=== PATIENT | female | born 1975 | race Caucasian/White ===

== ENCOUNTER 2016-02-17 16:22 | Emergency (ER) | payer MEDICAID ==
[2014-12-23 00:10] VITALS: BMI 33.5
[~2016-02-17 16:22] MED LIST: DEMEROL 2525 MG/1 ML PO; DEMEROL50 MG PO; FERROUS SULFAT325 MG PO; LEVAQUIN 5500 MG/100 PO; LEVAQUIN750 MG PO; TOBREX3.5 GM LEFT EYE
== END 2016-02-17 19:56 | disposition home or self-care (01) ==
LOC: D.ER 16:22
DX: S89.91XA Unspecified injury of right lower leg, initial encounter (principal); W10.9XXA Fall (on) (from) unspecified stairs and steps, initial encounter; Y93.89 Activity, other specified; Y92.019 Unspecified place in single-family (private) house as the place of occurrence of the external cause

== ENCOUNTER 2016-03-03 18:17 | Emergency (ER) | payer MEDICAID ==
[2014-12-23 00:10] VITALS: BMI 33.5
== END 2016-03-03 20:32 | disposition home or self-care (01) ==
LOC: D.ER 18:17
DX: Z03.89 Encounter for observation for other suspected diseases and conditions ruled out (principal); Z91.19 Patient's noncompliance with other medical treatment and regimen

== ENCOUNTER 2016-03-27 16:45 | Emergency (ER) | payer MEDICAID ==
[2014-12-23 00:10] VITALS: BMI 33.5
== END 2016-03-27 20:00 | disposition home or self-care (01) ==
LOC: D.ER 16:45
DX: S83.91XA Sprain of unspecified site of right knee, initial encounter (principal); W19.XXXA Unspecified fall, initial encounter; Y93.89 Activity, other specified; Y92.018 Other place in single-family (private) house as the place of occurrence of the external cause; M25.461 Effusion, right knee

== ENCOUNTER 2016-03-31 13:31 | Emergency (ER) | payer MEDICAID ==
[2014-12-23 00:10] VITALS: BMI 33.5
== END 2016-03-31 18:03 | disposition home or self-care (01) ==
LOC: D.ER 13:31
DX: S89.91XA Unspecified injury of right lower leg, initial encounter (principal); W19.XXXA Unspecified fall, initial encounter; Y93.89 Activity, other specified; Y92.019 Unspecified place in single-family (private) house as the place of occurrence of the external cause

== ENCOUNTER 2016-05-26 12:17 | Emergency (ER) | payer MEDICAID ==
[2014-12-23 00:10] VITALS: BMI 33.5
== END 2016-05-26 16:29 | disposition home or self-care (01) ==
LOC: D.ER 12:17
DX: S93.401A Sprain of unspecified ligament of right ankle, initial encounter (principal); W19.XXXA Unspecified fall, initial encounter; Y93.89 Activity, other specified; Y92.019 Unspecified place in single-family (private) house as the place of occurrence of the external cause

== ENCOUNTER 2016-06-08 20:15 | Emergency (ER) | payer MEDICAID ==
[2014-12-23 00:10] VITALS: BMI 33.5
[2016-06-08 23:32] LABS: APPEARANCE CLOUDY (CLEAR); BILIRUBIN NEGATIVE (NEGATIVE); COLOR YELLOW (YELLOW); GLUCOSE NEGATIVE (NEGATIVE); KETONE NEGATIVE (NEGATIVE); LEUKOCYTE ESTERASE NEGATIVE (NEGATIVE); NITRITE NEGATIVE (NEGATIVE); PROTEIN NEGATIVE (NEGATIVE); UROBILINOGEN NORMAL (NORMAL)
[2016-06-08 23:38] LABS: BACTERIA MODERATE /hpf (NONE SEEN); EPITHELIAL CELLS 0-5 /hpf (0-5); RED CELLS - URINE 0-5 /hpf (0-5); WHITE CELLS - URINE 0-5 /hpf (0-5)
[2016-06-08 23:39] LABS: HYALINE CAST RARE /lpf (NONE SEEN)
== END 2016-06-09 00:24 | disposition left against medical advice (07) ==
LOC: D.ER 20:15
PROVIDERS: Family Medicine
DX: R10.9 Unspecified abdominal pain (principal); F17.200 Nicotine dependence, unspecified, uncomplicated

== ENCOUNTER 2016-07-20 18:55 | Emergency (ER) | payer MEDICAID ==
[2014-12-23 00:10] VITALS: BMI 33.5
[2016-07-20 19:58] LABS: APPEARANCE HAZY (CLEAR); BILIRUBIN NEGATIVE (NEGATIVE); COLOR YELLOW (YELLOW); GLUCOSE NEGATIVE (NEGATIVE); KETONE NEGATIVE (NEGATIVE); LEUKOCYTE ESTERASE TRACE (NEGATIVE); NITRITE NEGATIVE (NEGATIVE); PROTEIN NEGATIVE (NEGATIVE); UROBILINOGEN NORMAL (NORMAL)
[2016-07-20 19:59] LABS: BACTERIA MODERATE /hpf (NONE SEEN); MUCUS <1+ /lpf (NONE SEEN); RED CELLS - URINE RARE /hpf (0-5); WHITE CELLS - URINE 0-5 /hpf (0-5)
[2016-07-20 20:06] LABS: BASOPHILS 0.5 % (0-2); EOSINOPHILS 8.2 % (0-7); HEMATOCRIT 29.4 % (36.0-48.0); HEMOGLOBIN 9.4 g/dL (12-16); IMMATURE GRANULOCYTES 0.2 % (0-5); LYMPHOCYTES 29.8 % (15-50); MCH 25.2 pg (26.0-34.0); MCV 78.8 fL (80.0-100.0); MEAN PLATELET VOLUME 10.3 fL (7.4-10.4); MONOCYTES 10.7 % (2-11); NEUTROPHILS 50.6 % (40-80); PLATELET COUNT 166 10x3/uL (130-400); RBC 3.73 10x6/uL (4.00-5.40); RDW 13.9 % (11.5-14.5); WBC 4.4 10x3/uL (4.8-10.8)
[2016-07-20 20:34] LABS: ALBUMIN 3.3 g/dL (3.4-5.0); ALKALINE PHOSPHATASE 64 U/L (46-116); ALT (SGPT) 22 U/L (10-68); AMYLASE - SERUM 58 U/L (25-115); BILIRUBIN - TOTAL 0.48 mg/dL (0.2-1.3); CALC OSMOLALITY 273 mosm/kg (275-300); CALCIUM 8.9 mg/dL (8.5-10.1); CARBON DIOXIDE 23.5 mmol/L (21.0-32.0); CHLORIDE - SERUM 104 mmol/L (98-107); CREATININE - SERUM 0.8 mg/dL (0.6-1.3); GLUCOSE 92 mg/dL (74-106); LIPASE 352 U/L (73-393); PROTEIN - SERUM 7.1 g/dL (6.4-8.2); SODIUM 136 mmol/L (136-145); UREA NITROGEN 19 mg/dL (7-18); eGFR NON AFRICAN AMERICAN 85 mL/min (90-120)
== END 2016-07-20 21:00 | disposition home or self-care (01) ==
LOC: D.ER 18:55
PROVIDERS: Emergency Medicine
DX: K29.00 Acute gastritis without bleeding (principal); R11.2 Nausea with vomiting, unspecified

== ENCOUNTER 2016-08-07 17:48 | Emergency (ER) | payer MEDICAID ==
[2014-12-23 00:10] VITALS: BMI 33.5
== END 2016-08-07 21:01 | disposition home or self-care (01) ==
LOC: D.ER 17:48
DX: S63.501A Unspecified sprain of right wrist, initial encounter (principal); X58.XXXA Exposure to other specified factors, initial encounter; Y93.K1 Activity, walking an animal; Y92.89 Other specified places as the place of occurrence of the external cause; F17.200 Nicotine dependence, unspecified, uncomplicated

== ENCOUNTER 2016-09-29 08:10 | Emergency (ER) | payer MEDICAID ==
[2014-12-23 00:10] VITALS: BMI 33.5
== END 2016-09-29 09:44 | disposition home or self-care (01) ==
LOC: D.ER 08:10
DX: S89.91XA Unspecified injury of right lower leg, initial encounter (principal); X58.XXXA Exposure to other specified factors, initial encounter; Y93.89 Activity, other specified; Y92.89 Other specified places as the place of occurrence of the external cause; F17.200 Nicotine dependence, unspecified, uncomplicated

== ENCOUNTER 2017-06-28 07:24 | Emergency (ER) | payer SELFPAY ==
[2014-12-23 00:10] VITALS: BMI 33.5
== END 2017-06-28 08:15 | disposition home or self-care (01) ==
LOC: D.ER 07:24
DX: M25.461 Effusion, right knee (principal); S89.91XA Unspecified injury of right lower leg, initial encounter; W01.0XXA Fall on same level from slipping, tripping and stumbling without subsequent striking against object, initial encounter; Y93.89 Activity, other specified; Y92.019 Unspecified place in single-family (private) house as the place of occurrence of the external cause

== ENCOUNTER 2017-07-05 14:28 | Emergency (ER) | payer SELFPAY ==
[2014-12-23 00:10] VITALS: BMI 33.5
== END 2017-07-05 16:19 | disposition home or self-care (01) ==
LOC: D.ER 14:28
DX: M25.561 Pain in right knee (principal); W10.9XXA Fall (on) (from) unspecified stairs and steps, initial encounter; Y93.89 Activity, other specified; Y92.019 Unspecified place in single-family (private) house as the place of occurrence of the external cause

== ENCOUNTER 2017-07-27 19:48 | Emergency (ER) | payer SELFPAY ==
[~2017-07-27] VITALS: Ht 160 cm; Wt 81.6 kg
[2017-07-27 19:59] VITALS: Ht 160 cm; Wt 81.6 kg
[2017-07-27] MEDS ORDERED: TORADOL10 MG PO (22:59)
[2017-07-27 23:58] VITALS: BP 138/99
== END 2017-07-27 23:22 | disposition home or self-care (01) ==
LOC: D.ER 19:48
DX: S89.91XA Unspecified injury of right lower leg, initial encounter (principal); W19.XXXA Unspecified fall, initial encounter; Y93.89 Activity, other specified; Y92.019 Unspecified place in single-family (private) house as the place of occurrence of the external cause

== ENCOUNTER 2017-08-23 10:16 | Emergency (ER) | payer SELFPAY ==
[~2017-08-23] VITALS: Ht 160 cm; Wt 81.4 kg
[~2017-08-23 10:16] MED LIST changes: +TORADOL10 MG PO
[2017-08-23 10:23] VITALS: BP 129/86; Ht 160 cm; Wt 81.4 kg
[2017-08-23] MEDS ORDERED: NEURONTIN 300300 MG PO (11:02)
== END 2017-08-23 11:38 | disposition home or self-care (01) ==
LOC: D.ER 10:16
DX: M54.2 Cervicalgia (principal)

== ENCOUNTER 2017-12-09 12:28 | Emergency (ER) | payer SELFPAY ==
[2017-08-23 10:23] VITALS: BMI 31.7
[~2017-12-09 12:28] MED LIST changes: +NEURONTIN 300300 MG PO
== END 2017-12-09 12:34 | disposition left against medical advice (07) ==
LOC: D.ER 12:28
DX: M25.511 Pain in right shoulder (principal)

== ENCOUNTER 2018-04-20 14:51 | Emergency (ER) | payer SELFPAY ==
[~2018-04-20] VITALS: Ht 160 cm; Wt 88.6 kg
[2018-04-20 14:58] VITALS: Ht 160 cm; Wt 88.6 kg
[2018-04-20] MEDS ORDERED: ROBAXIN500 MG PO (16:38)
[2018-04-20] MEDS ORDERED: VOLTAREN75 MG PO (16:38)
[2018-04-20 16:52] LABS: APPEARANCE CLEAR (CLEAR); COLOR RED (YELLOW)
[2018-04-20 16:53] LABS: BACTERIA FEW /hpf (NONE SEEN); BILIRUBIN NEGATIVE (NEGATIVE); EPITHELIAL CELLS 0-5 /hpf (0-5); GLUCOSE NEGATIVE (NEGATIVE); KETONE NEGATIVE (NEGATIVE); NITRITE NEGATIVE (NEGATIVE); PROTEIN 1+ mg/dL (NEGATIVE); UROBILINOGEN NORMAL (NORMAL); WHITE CELLS - URINE 0-5 /hpf (0-5)
[2018-04-20 17:32] VITALS: BP 132/89
== END 2018-04-20 17:34 | disposition home or self-care (01) ==
LOC: D.ER 14:51
PROVIDERS: Family Medicine
DX: M54.31 Sciatica, right side (principal); M62.838 Other muscle spasm

== ENCOUNTER 2019-01-31 12:24 | Emergency (ER) | payer MEDICAID ==
[~2019-01-31] VITALS: Ht 160 cm; Wt 86.8 kg
[~2019-01-31 12:24] MED LIST changes: +ROBAXIN500 MG PO; +VOLTAREN75 MG PO
[2019-01-31 12:49] VITALS: Ht 160 cm; Wt 86.8 kg
[2019-01-31 13:36] LABS: HCG URINE NEGATIVE (NEGATIVE)
[2019-01-31 13:51] LABS: CALC OSMOLALITY 277 mosm/kg (275-300); CALCIUM 8.2 mg/dL (8.5-10.1); CARBON DIOXIDE 24.1 mmol/L (21.0-32.0); CHLORIDE - SERUM 108 mmol/L (98-107); CREATININE - SERUM 0.5 mg/dL (0.6-1.3); GLUCOSE 84 mg/dL (74-106); SODIUM 140 mmol/L (136-145); UREA NITROGEN 12 mg/dL (7-18); eGFR NON AFRICAN AMERICAN > 90 mL/min (90-120)
[2019-01-31 13:52] LABS: APPEARANCE CLEAR (CLEAR); BILIRUBIN NEGATIVE (NEGATIVE); COLOR YELLOW (YELLOW); GLUCOSE NEGATIVE (NEGATIVE); KETONE NEGATIVE (NEGATIVE); NITRITE NEGATIVE (NEGATIVE); PROTEIN NEGATIVE (NEGATIVE); SPECIFIC GRAVITY 1.015 (1.005-1.020); UROBILINOGEN NORMAL (NORMAL)
[2019-01-31 13:54] LABS: HEMATOCRIT 30.1 % (36.0-48.0); HEMOGLOBIN 8.7 g/dL (12-16); MCH 20.9 pg (26.0-34.0); MCHC 28.9 g/dL (31.0-37.0); MCV 72.2 fL (80.0-100.0); RBC 4.17 10x6/uL (4.00-5.40); RDW 16.7 % (11.5-14.5); WBC 2.9 10x3/uL (4.8-10.8)
[2019-01-31 13:55] LABS: PLATELET COUNT 238 10x3/uL (130-400)
[2019-01-31 14:00] LABS: ALBUMIN 3.3 g/dL (3.4-5.0); ALKALINE PHOSPHATASE 53 U/L (46-116); ALT (SGPT) 15 U/L (10-68); AMYLASE - SERUM 44 U/L (25-115); BILIRUBIN - TOTAL 0.47 mg/dL (0.2-1.3); LIPASE 115 U/L (73-393); PROTEIN - SERUM 6.7 g/dL (6.4-8.2)
[2019-01-31 14:21] LABS: EOSINOPHILS 8 % (0-7); LYMPHOCYTES 32 % (15-50); MONOCYTES 6 % (2-11); NEUTROPHILS 54 % (40-80); PLATELET ESTIMATE NORMAL
[2019-01-31] MEDS ORDERED: SLOW RELEASE I160 MG PO (16:02)
[2019-01-31 16:45] VITALS: BP 117/50
== END 2019-01-31 16:45 | disposition home or self-care (01) ==
LOC: D.ER 12:24
PROVIDERS: Family Medicine
DX: D50.9 Iron deficiency anemia, unspecified (principal); R10.32 Left lower quadrant pain; D72.819 Decreased white blood cell count, unspecified